=== PATIENT | male | born 1980 | race Two or more races ===

== ENCOUNTER 2022-12-03 10:16 | Inpatient (IN) | payer OTHER ==
[2022-12-03 11:06] VITALS: BMI 25.0
[2022-12-03] MEDS ORDERED: BENZONATATE 200 MG CAPSULE PO PRN (11:43)
[2022-12-03] MEDS ORDERED: MAGNESIUM HYDROX 2400MG/30ML ORAL SUSPENSION 30 ML CUP PO PRN (11:43)
[2022-12-03] MEDS ORDERED: TUBERCULIN PPD 5 TU/0.1ML SYRINGE (IN PATIENT USE ONLY) ID ONE (11:43)
[2022-12-03] MEDS ORDERED: P-EPHED 60MG/TRIPROLIDI 2.5MG TABLET PO PRN (11:43)
[2022-12-03] MEDS ORDERED: AMMONIUM LACTATE 12% LOTION 225 GM BOTTLE TP PRN (11:43)
[2022-12-03] MEDS ORDERED: LOPERAMIDE HCL 2 MG CAPSULE PO PRN (11:43)
[2022-12-03] MEDS ORDERED: ACETAMINOPHEN 325 MG TABLET (FP) PO PRN (11:43)
[2022-12-03] MEDS ORDERED: NICOTINE POLACRILEX 2 MG GUM BUC PRN (11:43)
[2022-12-03] MEDS ORDERED: IBUPROFEN 600 MG TABLET (FP) PO PRN (11:43)
[2022-12-03] MEDS ORDERED: MAG HYDROX/AL HYDROX/SIMETH 30 ML UNIT-DOSE CUP PO PRN (11:43)
[2022-12-03] MEDS ORDERED: BENZOCAINE/MENTHOL (CHLORASEPTIC ) LOZENGE MM PRN (11:43)
[2022-12-03] MEDS ORDERED: MELATONIN 5 MG TABLETS PO PRN (11:43)
[2022-12-03] MEDS ORDERED: POLYETHYLENE GLYCOL (HEALTHYLAX) 3350 17 GM PACKET PO PRN (11:43)
[2022-12-03] MEDS ORDERED: guaiFENesin 600 MG TABLET.ER (FP) PO PRN (11:43)
[2022-12-03] MEDS ORDERED: IBUPROFEN 400 MG TABLET (FP) PO PRN (11:43)
[2022-12-03 14:05] LABS: POTASSIUM 3.6 mmol/L (3.5-5.1)
[2022-12-03 14:13] LABS: BLOOD UREA NITROGEN 12.3 mg/dL (7-18)
[2022-12-03 14:14] LABS: CALCIUM 9.2 mg/dL (8.5-10.1)
[2022-12-03 14:15] LABS: ALBUMIN 3.8 g/dl (3.4-5.0)
[2022-12-03 14:18] LABS: BILIRUBIN,TOTAL 0.6 mg/dL (0.2-1); TOT PROT 7.6 g/dl (6.4-8.2)
[2022-12-03 14:26] LABS: HEMATOCRIT 39.8 % (35.4-49); HEMOGLOBIN 13.5 GM/dL (11.7-16.9); MCH 31.4 pg (25.7-33.7); MCHC 33.9 g/dl (32.0-35.9); MEAN CELL VOLUME 92.7 fl (80-96); MEAN PLT VOLUME 8.7 fl (7.5-11.1); PLATELET COUNT 241 10^3/uL (134-434); RBC 4.29 M/mm3 (4.00-5.60); RDW 13.9 % (11.9-15.9); WHITE BLOOD COUNT 4.5 K/mm3 (4.0-10.0)
[2022-12-03 14:31] LABS: SYPHILIS W/ RPR CONF NON-REACTIVE (NONREACTIVE)
[2022-12-03] MEDS ORDERED: TUBERCULIN PPD 5 TU/0.1ML VIAL ID ONE (15:51)
[2022-12-03] MEDS: THIAMINE HCL 100 MG TABLET (FP) PO SCH (21:44)
[2022-12-03] MEDS ORDERED: QUEtiapine FUMARATE 50 MG TABLET PO SCH (22:00)
[2022-12-04] MEDS: PRENATAL VITAMINS W/ FOLIC ACID TABLET (FP) PO SCH (09:20)
[2022-12-04 12:34] LABS: URINE APPEARANCE CLEAR; URINE BILIRUBIN NEGATIVE (NEGATIVE); URINE COLOR YELLOW; URINE GLUCOSE (UA) NEGATIVE (NEGATIVE); URINE KETONE NEGATIVE (NEGATIVE); URINE LEUK ESTERASE NEGATIVE (NEGATIVE); URINE NITRITE NEGATIVE (NEGATIVE); URINE PROTEIN NEGATIVE (NEGATIVE); URINE UROBILINOGEN 0.2 mg/dL (0.2-1.0)
[2022-12-04] MEDS: THIAMINE HCL 100 MG TABLET (FP) PO SCH (21:26)
[2022-12-04] MEDS: QUEtiapine FUMARATE 50 MG TABLET PO SCH (21:27)
[2022-12-05] MEDS: SERTRALINE HCL 25 MG TABLET (FP) PO SCH (09:28)
[2022-12-05] MEDS: PRENATAL VITAMINS W/ FOLIC ACID TABLET (FP) PO SCH (09:28)
[2022-12-05 12:03] LABS: HIV INTERPRETATION NEGATIVE (NEGATIVE)
[2022-12-05] MEDS: QUEtiapine FUMARATE 50 MG TABLET PO SCH (21:17)
[2022-12-05] MEDS: THIAMINE HCL 100 MG TABLET (FP) PO SCH (21:18)
[2022-12-06] MEDS: PRENATAL VITAMINS W/ FOLIC ACID TABLET (FP) PO SCH (09:42)
[2022-12-06] MEDS: SERTRALINE HCL 25 MG TABLET (FP) PO SCH (09:42)
[2022-12-06] MEDS: COLLOIDAL OATMEAL 1 BAR EACH TP PRN (09:43)
[2022-12-06] MEDS: LISINOPRIL 5 MG TABLET PO SCH (11:48)
[2022-12-06] MEDS: THIAMINE HCL 100 MG TABLET (FP) PO SCH (21:11)
[2022-12-06] MEDS: QUEtiapine FUMARATE 50 MG TABLET PO SCH (21:11)
[2022-12-07] MEDS: PRENATAL VITAMINS W/ FOLIC ACID TABLET (FP) PO SCH (09:42)
[2022-12-07] MEDS: SERTRALINE HCL 25 MG TABLET (FP) PO SCH (09:43)
[2022-12-07] MEDS: LISINOPRIL 5 MG TABLET PO SCH (09:43)
[2022-12-07] MEDS: QUEtiapine FUMARATE 50 MG TABLET PO SCH (21:07)
[2022-12-07] MEDS: THIAMINE HCL 100 MG TABLET (FP) PO SCH (21:07)
[2022-12-08] MEDS: PRENATAL VITAMINS W/ FOLIC ACID TABLET (FP) PO SCH (09:43)
[2022-12-08] MEDS: SERTRALINE HCL 25 MG TABLET (FP) PO SCH (09:43)
[2022-12-08] MEDS: LISINOPRIL 5 MG TABLET PO SCH (09:43)
[2022-12-08] MEDS: THIAMINE HCL 100 MG TABLET (FP) PO SCH (21:06)
[2022-12-08] MEDS: hydrOXYzine PAMOATE 25 MG CAPSULE (FP) PO PRN (21:06)
[2022-12-08] MEDS: QUEtiapine FUMARATE 50 MG TABLET PO SCH (21:06)
[2022-12-09] MEDS: SERTRALINE HCL 25 MG TABLET (FP) PO SCH (10:05)
[2022-12-09] MEDS: PRENATAL VITAMINS W/ FOLIC ACID TABLET (FP) PO SCH (10:05)
[2022-12-09] MEDS: hydrOXYzine PAMOATE 25 MG CAPSULE (FP) PO PRN ×2 (10:05→21:13)
[2022-12-09] MEDS: LISINOPRIL 5 MG TABLET PO SCH (10:05)
[2022-12-09] MEDS: QUEtiapine FUMARATE 50 MG TABLET PO SCH (21:13)
[2022-12-09] MEDS: THIAMINE HCL 100 MG TABLET (FP) PO SCH (21:13)
[2022-12-10] MEDS: SERTRALINE HCL 25 MG TABLET (FP) PO SCH (09:50)
[2022-12-10] MEDS: LISINOPRIL 5 MG TABLET PO SCH (09:50)
[2022-12-10] MEDS: PRENATAL VITAMINS W/ FOLIC ACID TABLET (FP) PO SCH (09:50)
[2022-12-10] MEDS: THIAMINE HCL 100 MG TABLET (FP) PO SCH (21:24)
[2022-12-10] MEDS: QUEtiapine FUMARATE 50 MG TABLET PO SCH (21:25)
[2022-12-11] MEDS: SERTRALINE HCL 25 MG TABLET (FP) PO SCH (10:12)
[2022-12-11] MEDS: PRENATAL VITAMINS W/ FOLIC ACID TABLET (FP) PO SCH (10:12)
[2022-12-11] MEDS: LISINOPRIL 5 MG TABLET PO SCH (10:12)
[2022-12-11] MEDS: THIAMINE HCL 100 MG TABLET (FP) PO SCH (21:06)
[2022-12-11] MEDS: QUEtiapine FUMARATE 50 MG TABLET PO SCH (21:06)
[2022-12-12] MEDS: PRENATAL VITAMINS W/ FOLIC ACID TABLET (FP) PO SCH (09:27)
[2022-12-12] MEDS: SERTRALINE HCL 25 MG TABLET (FP) PO SCH (09:27)
[2022-12-12] MEDS: LISINOPRIL 5 MG TABLET PO SCH (09:27)
[2022-12-12] MEDS ORDERED: QUEtiapine FUMARATE 25 MG TABLET ONE (18:55)
[2022-12-12] MEDS: QUEtiapine FUMARATE 50 MG TABLET PO SCH (21:06)
[2022-12-12] MEDS: THIAMINE HCL 100 MG TABLET (FP) PO SCH (21:06)
[2022-12-13] MEDS: LISINOPRIL 5 MG TABLET PO SCH (09:41)
[2022-12-13] MEDS: PRENATAL VITAMINS W/ FOLIC ACID TABLET (FP) PO SCH (09:41)
[2022-12-13] MEDS: SERTRALINE HCL 25 MG TABLET (FP) PO SCH (09:41)
[2022-12-13] MEDS: QUEtiapine FUMARATE 50 MG TABLET PO SCH (21:05)
[2022-12-13] MEDS: THIAMINE HCL 100 MG TABLET (FP) PO SCH (21:06)
[2022-12-14] MEDS: LISINOPRIL 5 MG TABLET PO SCH (09:57)
[2022-12-14] MEDS: SERTRALINE HCL 25 MG TABLET (FP) PO SCH (09:57)
[2022-12-14] MEDS: PRENATAL VITAMINS W/ FOLIC ACID TABLET (FP) PO SCH (09:57)
[2022-12-14] MEDS: QUEtiapine FUMARATE 50 MG TABLET PO SCH (21:06)
[2022-12-14] MEDS: THIAMINE HCL 100 MG TABLET (FP) PO SCH (21:06)
[2022-12-14] MEDS: COLLOIDAL OATMEAL 1 BAR EACH TP PRN (21:39)
[2022-12-15] MEDS: LISINOPRIL 5 MG TABLET PO SCH (10:20)
[2022-12-15] MEDS: PRENATAL VITAMINS W/ FOLIC ACID TABLET (FP) PO SCH (10:20)
[2022-12-15] MEDS: SERTRALINE HCL 25 MG TABLET (FP) PO SCH (10:20)
[2022-12-15] MEDS: THIAMINE HCL 100 MG TABLET (FP) PO SCH (21:05)
[2022-12-15] MEDS: QUEtiapine FUMARATE 50 MG TABLET PO SCH (21:05)
[2022-12-16] MEDS: SERTRALINE HCL 25 MG TABLET (FP) PO SCH (09:55)
[2022-12-16] MEDS: LISINOPRIL 5 MG TABLET PO SCH (09:55)
[2022-12-16] MEDS: PRENATAL VITAMINS W/ FOLIC ACID TABLET (FP) PO SCH (09:55)
[2022-12-16] MEDS: hydrOXYzine PAMOATE 25 MG CAPSULE (FP) PO PRN ×2 (09:56→21:17)
[2022-12-16] MEDS: QUEtiapine FUMARATE 50 MG TABLET PO SCH (21:17)
[2022-12-16] MEDS: THIAMINE HCL 100 MG TABLET (FP) PO SCH (21:17)
[2022-12-17 06:31] VITALS: RESP 83; TEMP 97.8
[2022-12-17 09:06] VITALS: BP 118/73; PULSE 71
[2022-12-17] MEDS: LISINOPRIL 5 MG TABLET PO SCH (09:09)
[2022-12-17] MEDS: SERTRALINE HCL 25 MG TABLET (FP) PO SCH (09:09)
[2022-12-17] MEDS: PRENATAL VITAMINS W/ FOLIC ACID TABLET (FP) PO SCH (09:09)
== END 2022-12-17 09:10 | disposition home or self-care (01) | DRG 772 ==
LOC: YASAS 10:16 → Y3E 13:01
PROVIDERS: ADMIT Allergy & Immunology; ATTEND Psychiatry & Neurology Pain Medicine
PROC: HZ42ZZZ Group Counseling for Substance Abuse Treatment, Cognitive-Behavioral (ICD-10-PCS; principal; 2022-12-03)
DX: F14.20 Cocaine dependence, uncomplicated (principal); F17.290 Nicotine dependence, other tobacco product, uncomplicated; F31.9 Bipolar disorder, unspecified; F19.282 Other psychoactive substance dependence with psychoactive substance-induced sleep disorder; F19.24 Other psychoactive substance dependence with psychoactive substance-induced mood disorder; I10 Essential (primary) hypertension
CPT/HCPCS: 36415; 80053; 81003; 82962; 85027; 86780; 86803; 87389; 87811; C9803-CS; U0003; U0005